=== PATIENT | female | born 1960 ===

== ENCOUNTER 2016-09-28 14:58 | Emergency (ER) | payer OTHER ==
[2016-09-28 14:58] VITALS: BMI 28.3
[2016-09-28 15:08] VITALS: TEMP 98.3
[2016-09-28 16:49] LABS: BASO % 0.5 % (0.0-2.0); EOS # 0.1 K/uL (0.0-0.7); EOS % 1.2 % (0.0-4.0); LYMPH # 2.3 K/uL (1.0-4.3); LYMPH % 35.6 % (20.0-40.0); MEAN CELL VOLUME 87.4 fL (81.0-99.0); MEAN CORPUSCULAR HEMOGLOBIN 27.9 pg (27.0-31.0); MONO # 0.5 K/uL (0.0-0.8); MONO % 7.3 % (0.0-10.0); NEUT # 3.6 K/uL (1.8-7.0); NEUT % 55.4 % (50.0-75.0); RBC 3.95 Mil/uL (3.80-5.20); RED CELL DISTRIBUTION WIDTH 13.2 % (11.5-14.5); WHITE BLOOD COUNT 6.5 K/uL (4.8-10.8)
[2016-09-28 16:56] LABS: SQUAMOUS EPITHIAL 24 /hpf (0-5); URINE BACTERIA MOD (<OCC); URINE BILIRUBIN NEGATIVE (NEGATIVE); URINE BLOOD NEGATIVE (NEGATIVE); URINE CLARITY Hazy (Clear); URINE COLOR Amber (YELLOW); URINE GLUCOSE (UA) NORMAL (Normal); URINE LEUKOCYTE ESTERASE TRACE Leu/uL (Negative); URINE NITRATE POSITIVE (NEGATIVE); URINE PROTEIN 1+ mg/dL (NEGATIVE); URINE UROBILINOGEN NORMAL mg/dL (0.2-1.0)
[2016-09-28 16:57] LABS: HCG,QUALITATIVE URINE NEGATIVE (NEGATIVE)
[2016-09-28 17:06] LABS: ALBUMIN 3.6 g/dL (3.5-5.0)
[2016-09-28 17:09] LABS: AST/SGOT 31 U/L (14-36); GFR AFRICAN-AMERICAN > 60; GFR NON-AFRICAN AMERICAN > 60
[2016-09-28 17:10] LABS: ALT/SGPT 27 U/L (9-52); BLOOD UREA NITROGEN 18 mg/dL (7-17); CALCIUM 8.6 mg/dl (8.6-10.4); LIPASE 107 U/L (23-300)
--- NOTE | 2016-09-28 18:17 | C.PDOC ---
History Of Present Illness 56-year-old female presents to the emergency department with complaints of abdominal pain. Patient states she has been experiencing right-upper quadrant and epigastric abdominal pain for the past 1 month, which has worsened over the past week. Associated symptoms include nausea and one episode of non-bloody/non -bilious vomiting yesterday. Symptoms are not associated with PO intake. Patient denies diarrhea, fevers, chest pain, shortness of breath. Time Seen by Provider: 09/28/16 15:58 Chief Complaint (Nursing): Abdominal Pain History Per: Patient History/Exam Limitations: no limitations Onset/Duration Of Symptoms: Days Current Symptoms Are (Timing): Still Present Severity: Moderate Location Of Pain/Discomfort: RUQ, Epigastric Past Medical History Reviewed: Historical Data, Nursing Documentation, Vital Signs Vital Signs: Last Vital Signs Temp 98.3 F 09/28/16 19:05 Pulse 78 09/28/16 19:05 Resp 20 09/28/16 19:05 BP 119/79 09/28/16 19:05 Pulse Ox 99 09/28/16 19:05 - Medical History PMH: HTN, Hypercholesterolemia - [facility] Procedures INJECT/INFUSE NEC (05/13/03) Family History: States: No Known Family Hx - Social History Hx Alcohol Use: Yes (SOCIALLY) Hx Substance Use: No - Immunization History Hx Tetanus Toxoid Vaccination: No Hx Influenza Vaccination: No Hx Pneumococcal Vaccination: No Review Of Systems Except As Marked, All Systems Reviewed And Found Negative. Constitutional: Negative for: Fever Cardiovascular: Negative for: Chest Pain, Palpitations Gastrointestinal: Positive for: Nausea, Vomiting, Abdominal Pain. Negative for : Diarrhea Genitourinary: Negative for: Dysuria, Hematuria, Vaginal Discharge, Vaginal Bleeding Musculoskeletal: Negative for: Back Pain Physical Exam - Physical Exam Appears: Well, Non-toxic, No Acute Distress Skin: Warm, Dry, No Rash Head: Normacephalic Eye(s): bilateral: Normal Inspection Oral Mucosa: Moist Neck: Normal ROM Cardiovascular: Rhythm Regular, No Murmur Respiratory: Normal Breath Sounds, No Rales, No Rhonchi, No Wheezing Gastrointestinal/Abdominal: Bowel Sounds, Soft, Tenderness (RUQ, Epigastric TTP , (-) Bishop's, (-)McBurney's), No Guarding (s), No Rebound Back: No CVA Tenderness Extremity: Normal ROM ED Course And Treatment - Laboratory Results Result Diagrams: 09/28/16 16:46 09/28/16 16:46 O2 Sat by Pulse Oximetry: 98 (on RA) Pulse Ox Interpretation: Normal - CT Scan/US abdominal US Other Rad Studies (CT/US): Read By Radiologist, Radiology Report Reviewed CT/US Interpretation: Accession No. : [id number]. Patient Name / ID : SHIRA PAULINO / [id number]. Exam Date : 09/28/2016 17:51:53 ( Approved ). Study Comment : Sex / Age : F / 56Y. Creator : Arnold Shirley MD. Dictator : Arnold Shirley MD. Cable Assembler : Audio Video Repairer : Arnold Shirley MD. Approver2 : Report Date : 09/28/2016 18:52:54. My Comment : . HISTORY: Right upper quadrant/ epigastric pain; R/O cholecystitis. COMPARISON : None. TECHNIQUE: Sonographic evaluation of the right upper quadrant of the abdomen. FINDINGS: LIVER: Measures approximately 15.6 cm in CC dimension. Liver demonstrates smooth contour and normal echotexture. . No mass. No intrahepatic bile duct dilatation. No evidence of ascites seen. GALLBLADDER: The gallbladder is physiologically distended. No evidence of intraluminal gallbladder calculi. No evidence of pericholecystic fluid collections or sonographic Bishop sign. COMMON BILE DUCT: Measures 3.7 mm mm. No stones. No dilatation. PANCREAS: Unremarkable as visualized. No mass. No ductal dilatation. RIGHT KIDNEY: Measures approximately 10.3 x 3.6 x 3.8 cm in length. Normal echogenicity. No evidence of echogenic/shadowing calculi. Lower pole cyst is present measuring 2.4 x 2.1 x 2.6 cm. AORTA: No aneurysmal dilatation. IVC: Unremarkable. OTHER FINDINGS: None . IMPRESSION: No evidence of cholelithiasis. No evidence of sonographic Bishop sign Small cyst lower pole right kidney as described. Progress Note: Blood work, abdominal US, and UA ordered and reviewed. Patient given IV pepcid, IV toradol. Reevaluation Time: 19:00 Reassessment Condition: Improved (Patient reassessed, is currently resting comfortably, in no pain/distress. On exam, abdomen is soft and nontender. Blood work and US unremarkable. Patient is well appearing, with normal vitals, and is comfortable being discharged. She was given Rx for Protonix and instructed to Follow up with GI within 1 week. She understands she should return to ED if symptoms worsen.) Disposition Counseled Patient/Family Regarding: Studies Performed, Diagnosis, Need For Followup, Rx Given - Disposition Referrals: Lencho Hopkins Jr., MD [Medical Doctor] - Bautista Hyde MD [Staff Provider] - Disposition: HOME/ ROUTINE Disposition Time: 19:00 Condition: STABLE Additional Instructions: SEGUIMIENTO CON GASTROENTERLOGO DENTRO DE 1 SEMANA TOME MEDICAMENTOS DE PROTONIX TODOS LOS PUENTE EVITE LOS ALIMENTOS PICANTE / ACIDICOS DEVUELVA A LA ALIZA DE EMERGENCIA SI LOS SNTOMAS EMPEORARAN Prescriptions: Pantoprazole [Protonix EC Tab] 20 mg PO DAILY #30 ect Instructions: Epigastric Pain (ED) Print Language: GREENLANDIC - POA Present On Arrival: None - Clinical Impression Clinical Impression: Epigastric abdominal pain - Scribe Statement The provider has reviewed the documentation as recorded by the Scribe (Camilo hammond) All medical record entries made by the Scribe were at my direction and personally dictated by me. I have reviewed the chart and agree that the record accurately reflects my personal performance of the history, physical exam, medical decision making, and the department course for this patient. I have also personally directed, reviewed, and agree with the discharge instructions and disposition.
--- NOTE | 2016-09-28 18:55 | US ---
HISTORY: Right upper quadrant/ epigastric pain; R/O cholecystitis COMPARISON: None. TECHNIQUE: Sonographic evaluation of the right upper quadrant of the abdomen. FINDINGS: LIVER: Measures approximately 15.6 cm in CC dimension. Liver demonstrates smooth contour and normal echotexture. . No mass. No intrahepatic bile duct dilatation. No evidence of ascites seen. GALLBLADDER: The gallbladder is physiologically distended. No evidence of intraluminal gallbladder calculi. No evidence of pericholecystic fluid collections or sonographic Bishop sign. COMMON BILE DUCT: Measures 3.7 mm mm. No stones. No dilatation. PANCREAS: Unremarkable as visualized. No mass. No ductal dilatation. RIGHT KIDNEY: Measures approximately 10.3 x 3.6 x 3.8 cm in length. Normal echogenicity. No evidence of echogenic/shadowing calculi. Lower pole cyst is present measuring 2.4 x 2.1 x 2.6 cm. AORTA: No aneurysmal dilatation. IVC: Unremarkable. OTHER FINDINGS: None . IMPRESSION: No evidence of cholelithiasis. No evidence of sonographic Bishop sign Small cyst lower pole right kidney as described.
[2016-09-28 19:06] VITALS: BP 119/79; PULSE 78; RESP 20
[2016-10-08 17:49] VITALS: O2SAT 98
== END 2016-09-28 19:04 | disposition home or self-care (01) ==
LOC: C.ER 14:58
DX: R10.13 Epigastric pain (principal)
CPT/HCPCS: 76705; 80053; 81001; 83690; 84703; 85025; 96374; 96375; 99284; J1885

== ENCOUNTER 2017-03-23 07:39 | Day surgery (SDC) | payer OTHER ==
[2017-03-23] MEDS ORDERED: MethylPREDNISolone Depo 40 mg/ml Inj ONE (07:40)
[2017-03-23] MEDS ORDERED: Iohexol 240 (50 ml) ONE (07:41)
[2017-03-23] MEDS ORDERED: Lidocaine Hydrochloride 10 ML INJ ONE (07:41)
[2017-03-23] MEDS ORDERED: Midazolam 2 MG/2 ML VIAL ONE (09:16)
[2017-03-23] MEDS ORDERED: Lactated Ringer's 1,000 ML IV ONE ×2 (09:25→09:45)
[2017-03-23 10:02] VITALS: O2SAT 96
[2017-03-23 10:39] VITALS: BP 96/66; PULSE 64; RESP 16; TEMP 97.8
--- NOTE | 2017-03-23 15:39 | RAD ---
PROCEDURE: Intraoperative fluoroscopy HISTORY: CERVICAL RADICULOPATHY COMPARISON: Not available TECHNIQUE: Intraoperative fluoroscopy was provided for a cervical epidural injection. Total time of fluoroscopy was 6.6 seconds. FINDINGS: A single fluoroscopic spot film is submitted. IMPRESSION: Fluoroscopy provided.
--- NOTE | 2017-03-24 07:15 | OP ---
PROCEDURE DATE: 03/23/17 PREOPERATIVE DIAGNOSES: 1. Cervical radiculopathy. 2. Cervical disc displacement without myopathy. 3. Myalgias. POSTOPERATIVE DIAGNOSES: 1. Cervical radiculopathy. 2. Cervical disc displacement without myopathy. 3. Myalgias. PROCEDURE: 1. Cervical epidural steroid injection, C6-C7. 2. Epidurogram. 3. Trigger point injections. X-RAY: [id number], fluoroscopy of the spine. ANESTHESIA: MAC/local. SURGEON: Howard Vidal MD COMPLICATIONS: None. BLOOD LOSS: 2 mL. BRIEF HISTORY AND INDICATIONS: The patient has cervical radiculopathy and upper extremity pain and tingling radiating down from the posterior neck down to the arm and posterior shoulder side to all fingers. This patient presents today for a cervical epidural steroid injection under fluoroscopic guidance at the C6-C7 interlaminar space. PROCEDURE IN DETAIL: The patient, after giving informed consent for the procedure, was brought back to the procedure room, sitting in a wheelchair. Routine monitors were applied. The patient was leant forward with the neck flexed and forehead placed on a towel on the OR table. Neck was flexed at approximately 50 degrees lateral. Lateral fluoroscopic view was obtained at the C6-C7 levels. The patient was prepped and draped in a sterile fashion. A 27-gauge needle was used to inject lidocaine 1% subcutaneously over the skin overlying the interlaminar space of C6-C7. Subsequently, a 22-gauge Tuohy needle was used to advance into the C6-C7 interlaminar area using loss of resistance technique to enter the epidural space. The needle position was confirmed in lateral views. Contrast 180 Omnipaque was injected 0.5 mL showing good epidurogram. Subsequently, 80 mg of Depo-Medrol with 1 mL of normal saline was injected with intermittent negative aspiration. No heme or CSF was aspirated throughout. No paresthesias were elicited throughout. The patient tolerated the procedure well. Vital signs remained stable. The patient reported slight reduction in pain post procedure. Epidurogram: The patient underwent cervical epidural steroid injection today. The epidural was observed at the level of C6-C7 under AP and lateral fluoroscopic guidance. 2 mL of Omnipaque 200 contrast was injected that evenly spread from level C4 to C7 level with posterior-anterior dye spread bilaterally at level of C6-C7 and C5-C6. There appeared to be a moderate degree spondylosis at the level of C5-C6 and moderate degree of spondylosis at the level of C6-C7 with disc protrusion at the level of C6-C7. The intervertebral disc height at the level of C5-C6 was slightly less than normal and intervertebral disc height at the level of C7-T1 was well maintained. The neural foramen appeared to be patent. Conclusion: Good epidural dye containment from C6-C7 with intervertebral disc protrusion at the level of C5-C6, C6-C7, maintaining less than normal intervertebral disc height at level C5-C6. Spondylosis noted at the level of C4 through T1. Copies of the images are on file. Trigger Point Injections/Greater and Lesser Occipital Nerve Blocks: Tender to palpation on cervical areas and pain shooting up posterior head. Patient signed informed consent. Cervical area was prepped and draped in sterile fashion. A 25-gauge needle was used to inject trigger point areas in trapezius muscles, paracervical muscles, and rhomboids bilaterally. The greater and lesser occipital nerves were also injected bilaterally by inserting needle 1 cm lateral and inferior to the posterior occipital protuberance. Total volume used was 10 mL of 0.25% Marcaine mixed with 40 mg Kenalog. Intermittent aspiration was done throughout with no heme or CSF aspirated throughout. Patient tolerated procedure well. DISPOSITION: Patient was taken to the recovery room in stable condition. Patient was given instructions to follow up in two weeks and was discharged in stable condition. No events or complications. Howard Vidal MD
== END 2017-03-23 10:40 | disposition home or self-care (01) ==
LOC: C.SDS 07:39
PROVIDERS: ATTEND Anesthesiology Pain Medicine
DX: M50.10 Cervical disc disorder with radiculopathy, unspecified cervical region (principal); M47.22 Other spondylosis with radiculopathy, cervical region; I10 Essential (primary) hypertension; K21.9 Gastro-esophageal reflux disease without esophagitis; Z79.899 Other long term (current) drug therapy; M47.27 Other spondylosis with radiculopathy, lumbosacral region
CPT/HCPCS: 20552; 62321; J1030; J2250; J3010; J7120; Q9966

== ENCOUNTER 2017-10-26 07:46 | Day surgery (SDC) | payer OTHER ==
[~2017-10-26 07:46] MED LIST: Bupivacaine 0.25% 20 ML INJ IJ ONE; Iohexol 240 (50 ml) ONE; MethylPREDNISolone Depo 40 mg/ml Inj ONE
[2017-10-26] MEDS ORDERED: Midazolam 2 MG/2 ML VIAL ONE (09:34)
[2017-10-26] MEDS ORDERED: methylPREDNISolone Depo 80 mg/ml Inj ONE (09:36)
[2017-10-26 11:05] VITALS: RESP 18; O2SAT 100
[2017-10-26 12:52] VITALS: BP 100/68; PULSE 75; TEMP 97.8
--- NOTE | 2017-10-26 13:22 | RAD ---
Date of service: 10/26/2017 PROCEDURE: Intraoperative fluoroscopy HISTORY: CERVICAL RADICULOPATHY COMPARISON: Not available TECHNIQUE: Intraoperative fluoroscopy was provided for pain management intervention. Total time of fluoroscopy was 11.6 seconds. Cumulative dose was 0.62 mGy. FINDINGS: Multiple fluoroscopic spot films are submitted. IMPRESSION: Fluoroscopy provided.
--- NOTE | 2017-10-26 21:36 | OP ---
Copied To: Howard Vidal MD Attending MD: Howard Vidal MD PROCEDURE DATE: 10/26/2017 PREOPERATIVE DIAGNOSES: 1. Cervical radiculopathy. 2. Cervical disc displacement without myopathy. 3. Myalgias. POSTOPERATIVE DIAGNOSES: 1. Cervical radiculopathy. 2. Cervical disc displacement without myopathy. 3. Myalgias. PROCEDURE: 1. Cervical epidural steroid injection, C6-C7. 2. Epidurogram. 3. Trigger point injections. X-RAY: [id number], fluoroscopy of the spine. ANESTHESIA: MAC/local. SURGEON: Howard Vidal MD COMPLICATIONS: None. BLOOD LOSS: 2 mL. BRIEF HISTORY AND INDICATIONS: The patient has cervical radiculopathy and upper extremity pain and tingling radiating down from the posterior neck down to the arm and posterior shoulder side to all fingers. This patient presents today for a cervical epidural steroid injection under fluoroscopic guidance at the C6-C7 interlaminar space. PROCEDURE IN DETAIL: The patient, after giving informed consent for the procedure, was brought back to the procedure room, sitting in a wheelchair. Routine monitors were applied. The patient was leant forward with his neck flexed and forehead placed on a towel on the OR table. Neck was flexed at approximately 50 degrees lateral. Lateral fluoroscopic view was obtained at the C6-C7 levels. The patient was prepped and draped in a sterile fashion. A 27-gauge needle was used to inject lidocaine 1% subcutaneously over the skin overlying the interlaminar space of C6-C7. Subsequently, a 22-gauge Tuohy needle was used to advance into the C6-C7 interlaminar area using loss of resistance technique to enter the epidural space. The needle position was confirmed in lateral views. Contrast 180 Omnipaque was injected 0.5 mL showing good epidurogram. Subsequently, 80 mg of Depo-Medrol with 1 mL of normal saline was injected with intermittent negative aspiration. No heme or CSF was aspirated throughout. No paresthesias were elicited throughout. The patient tolerated the procedure well. Vital signs remained stable. The patient reported slight reduction in pain post procedure. Epidurogram: The patient underwent cervical epidural steroid injection today. The epidural was observed at the level of C6-C7 under AP and lateral fluoroscopic guidance. 2 mL of Omnipaque 200 contrast was injected that evenly spread from level C4 to C7 level with posterior-anterior dye spread bilaterally at level of C6-C7 and C5-C6. There appeared to be a moderate degree spondylosis at the level of C5-C6 and moderate degree of spondylosis at the level of C6-C7 with disc protrusion at the level of C6-C7. The intervertebral disc height at the level of C5-C6 was slightly less than normal and intervertebral disc height at the level of C7-T1 was well maintained. The neural foramen appeared to be patent. Conclusion: Good epidural dye containment from C6-C7 with intervertebral disc protrusion at the level of C5-C6, C6-C7, maintaining less than normal intervertebral disc height at level C5-C6. Spondylosis noted at the level of C4 through T1. Copies of the images are on file. Trigger Point Injections/Greater and Lesser Occipital Nerve Blocks: Tender to palpation on cervical areas and pain shooting up posterior head. Patient signed informed consent. Cervical area was prepped and drapped in sterile fashion. A 25-gauge needle was used to inject trigger point areas in trapezious muscles, paracervical muscles, and rhomboids bilaterally. The greater and lesser occipital nerves were also injected bilaterally by inserting needle 1 cm lateral and inferior to the posterior occipital protuberance. Total volume used was 10 mL of 0.25% Marcaine mixed with 40 mg Kenalog. Intermittant aspiration was done throughout with no heme or CSF aspirated throughout. Patient tolerated procedure well. DISPOSITION: Patient was taken to the recovery room in stable condition. Patient was given instructions to follow up in two weeks and was discharged in stable condition. No events or complications. Howard Vidal MD
== END 2017-10-26 12:45 | disposition home or self-care (01) ==
LOC: C.SDS 07:46
PROVIDERS: ATTEND Anesthesiology Pain Medicine
DX: M54.12 Radiculopathy, cervical region (principal); M50.20 Other cervical disc displacement, unspecified cervical region; M79.1 Myalgia
CPT/HCPCS: 20553; 62321; J1040; J2250; J3010; Q9966